=== PATIENT | male | born 1940 | race Caucasian/White ===

== ENCOUNTER 2016-09-16 11:59 | Emergency (ER) | payer MEDICARE, BC ==
[~2016-09-16] VITALS: Ht 185.4 cm; Wt 86.2 kg
[2016-09-16] MEDS ORDERED: PRIS1TAB PO (12:16)
[2016-09-16] MEDS ORDERED: ASPI81TA85 PO (12:16)
[2016-09-16] MEDS ORDERED: ATOR1TAB19 PO (12:16)
[2016-09-16] MEDS ORDERED: PLAV75TA38 PO (12:16)
[2016-09-16] MEDS ORDERED: OMEP40CA2 PO (12:16)
[2016-09-16 12:56] LABS: BASO % 0.3 % (0.0-1.0); EOS % 0.5 % (0.0-3.0); LARGE UNSTAINED CELL # 0.1 K/mm3 (0.0-0.4); LARGE UNSTAINED CELL % 1.6 % (0.0-4.0); LYMPH # 1.7 K/mm3 (1.5-4.5); LYMPH % 24.5 % (24.0-44.0); MEAN CORPUSCULAR HEMOGLOBIN 32.8 pg (27.0-33.0); MEAN CORPUSCULAR HGB CONC 34.4 g/dl (32.0-36.5); MEAN CORPUSCULAR VOLUME 95.3 fl (80.0-96.0); MONO # 0.4 K/mm3 (0.0-0.8); NEUTROPHILS # 4.8 K/mm3 (1.8-7.7); PLATELET COUNT, AUTOMATED 201 k/mm3 (150-450); RED CELL DISTRIBUTION WIDTH 12.8 % (11.5-14.5); WHITE BLOOD COUNT 7.1 K/mm3 (4.0-10.0)
[2016-09-16 13:09] LABS: ALBUMIN 3.4 GM/DL (3.2-5.2); ALBUMIN/GLOBULIN RATIO 0.97 (1.00-1.93); ALKALINE PHOSPHATASE 64 U/L (45-117); ALT/SGPT 23 U/L (12-78); ANION GAP 7 MEQ/L (8-16); AST/SGOT 13 U/L (15-37); BILIRUBIN,DIRECT 0.1 MG/DL (0.0-0.2); BILIRUBIN,TOTAL 0.4 MG/DL (0.2-1.0); BLOOD UREA NITROGEN 24 MG/DL (7-18); CARBON DIOXIDE LEVEL 26 MEQ/L (21-32); CHLORIDE LEVEL 105 MEQ/L (98-107); CREATININE FOR GFR 0.86 MG/DL (0.70-1.30); GLOMERULAR FILTRATION RATE > 60.0 (>42); GLUCOSE, FASTING 123 MG/DL (83-110); SODIUM LEVEL 138 MEQ/L (136-145); TOTAL PROTEIN 6.9 GM/DL (6.4-8.2)
--- NOTE | 2016-09-16 13:27 | REP ---
Chest two views HISTORY: Chest pain Comparison: None The lungs are clear. The heart is normal in size. The pulmonary vasculature is normal in appearance. The bony structure is intact. IMPRESSION: No acute disease. Signed by Antonio Arguelles MD 09/16/2016 01:18 P
[2016-09-16 13:37] LABS: INR 1.01
[2016-09-16] MEDS ORDERED: NITROGLYCERIN 0.3 MG SUBL TAB As Ordered ONE (13:44)
[2016-09-16 14:43] VITALS: BP 151/83
--- NOTE | 2016-09-17 08:08 | ECGEPIP ---
Stationary ECG Study [facility] - ED Test Date: 2016-09-16 Pat Name: NETTIE COLBY Department: Room: - Gender: M [employer] Consultant: yo : 1940 Requested By: HIMA Vasquez Order Number: [id number] Reading MD: Katiana Narayan Measurements Intervals [place] Rate: 53 P: 31 [place]: 155 QRS: 22 QRSD: 146 T: 8 QT: 420 QTc: 395 Interpretive Statements SINUS BRADYCARDIA RIGHT BUNDLE BRANCH BLOCK NO PRIOR FOR COMPARISON Electronically Signed On 09-17-2016 8:07:43 EDT by Katiana Narayan
--- NOTE | 2016-09-17 08:09 | ECGEPIP ---
Stationary ECG Study [facility] - ED Test Date: 2016-09-16 Pat Name: NETTIE COLBY Department: Room: - Gender: M Major Account Representative: JMike : 1940 Requested By: HIMA Vasquez Order Number: [id number] Reading MD: Katiana Narayan Measurements Intervals [place] Rate: 48 P: 43 [place]: 151 QRS: 32 QRSD: 154 T: 15 QT: 433 QTc: 388 Interpretive Statements SINUS BRADYCARDIA RIGHT BUNDLE BRANCH BLOCK SIMILAR 09/16/16 12:15 Electronically Signed On 09-17-2016 8:09:22 EDT by Katiana Narayan
== END 2016-09-16 14:46 | disposition short-term general hospital (02) ==
LOC: M ED 13:26
DX: I20.0 Unstable angina (principal); I45.10 Unspecified right bundle-branch block; R00.1 Bradycardia, unspecified; Z95.5 Presence of coronary angioplasty implant and graft; Z87.891 Personal history of nicotine dependence; Z79.82 Long term (current) use of aspirin; Z79.899 Other long term (current) drug therapy; Z88.5 Allergy status to narcotic agent